=== PATIENT | male | born 1985 | race African-American/Black ===

== ENCOUNTER 2023-12-01 16:46 | Inpatient (IN) | payer OTHER ==
[2023-12-01 18:06] VITALS: BMI 31.8
[2023-12-01] MEDS ORDERED: POLYETHYLENE GLYCOL (HEALTHYLAX) 3350 17 GM PACKET PO PRN (18:49)
[2023-12-01] MEDS ORDERED: BENZONATATE 200 MG CAPSULE PO PRN (18:49)
[2023-12-01] MEDS ORDERED: BISMUTH SUBSALICYLATE 524 MG/30 ML PO PRN (18:49)
[2023-12-01] MEDS ORDERED: DICYCLOMINE HCL 10 MG CAPSULE PO PRN (18:49)
[2023-12-01] MEDS ORDERED: IBUPROFEN 600 MG TABLET (FP) PO PRN (18:49)
[2023-12-01] MEDS ORDERED: ACETAMINOPHEN 325 MG TABLET (FP) PO PRN (18:49)
[2023-12-01] MEDS ORDERED: guaiFENesin 600 MG TABLET.ER (FP) PO PRN (18:49)
[2023-12-01] MEDS ORDERED: MAG HYDROX/AL HYDROX/SIMETH 30 ML UNIT-DOSE CUP PO PRN (18:49)
[2023-12-01] MEDS ORDERED: IBUPROFEN 400 MG TABLET (FP) PO PRN (18:49)
[2023-12-01] MEDS ORDERED: NICOTINE POLACRILEX 2 MG LOZENGE BC PRN (18:49)
[2023-12-01] MEDS ORDERED: NICOTINE POLACRILEX 2 MG GUM BUC PRN (18:49)
[2023-12-01] MEDS ORDERED: P-EPHED 60MG/TRIPROLIDI 2.5MG TABLET PO PRN (18:49)
[2023-12-01] MEDS ORDERED: BENZOCAINE/MENTHOL (CHLORASEPTIC ) LOZENGE MM PRN (18:49)
[2023-12-01] MEDS ORDERED: ONDANSETRON *ODT* 4 MG TABLET SL PRN (18:49)
[2023-12-01] MEDS: amLODIPine BESYLATE 2.5 MG TABLET (FP) PO SCH (20:41)
[2023-12-01] MEDS: hydrOXYzine PAMOATE 25 MG CAPSULE (FP) PO PRN (20:41)
[2023-12-01] MEDS: THIAMINE 100 MG TABLET PO SCH (21:49)
[2023-12-01] MEDS: MELATONIN 5 MG TABLETS PO SCH (21:49)
[2023-12-01] MEDS: METHOCARBAMOL 500 MG TABLET PO PRN (21:49)
[2023-12-01] MEDS: cloNIDine HCL 0.1 MG TABLET PO ONE (23:43)
[2023-12-02 09:51] LABS: POTASSIUM 4.4 mmol/L (3.5-5.1)
[2023-12-02 09:52] LABS: HEMATOCRIT 38.5 % (35.4-49); HEMOGLOBIN 13.3 GM/dL (11.7-16.9); MCH 30.8 pg (25.7-33.7); MCHC 34.6 g/dl (32.0-35.9); MEAN CELL VOLUME 89.2 fl (80-96); MEAN PLT VOLUME 7.5 fl (7.5-11.1); PLATELET COUNT 292 10^3/uL (134-434); RBC 4.31 M/mm3 (4.00-5.60); RDW 14.3 % (11.9-15.9); WHITE BLOOD COUNT 5.2 K/mm3 (4.0-10.0)
[2023-12-02 10:01] LABS: ALBUMIN 3.4 g/dl (3.4-5.0); BLOOD UREA NITROGEN 10.6 mg/dL (7-18)
[2023-12-02] MEDS ORDERED: chlordiazePOXIDE HCL 25 MG CAPSULE PO PRN (10:03)
[2023-12-02 10:04] LABS: CREATININE 0.8 mg/dL (0.55-1.3)
[2023-12-02] MEDS: NICOTINE 14 MG/24 HOURS TOPICAL PATCH TD SCH (10:07)
[2023-12-02] MEDS: PRENATAL VITAMINS W/ FOLIC ACID TABLET (FP) PO SCH (10:07)
[2023-12-02 10:08] LABS: TOT PROT 6.4 g/dl (6.4-8.2)
[2023-12-02 10:18] LABS: BILIRUBIN,TOTAL 1.1 mg/dL (0.2-1)
[2023-12-02] MEDS: chlordiazePOXIDE HCL 25 MG CAPSULE PO SCH (10:50)
[2023-12-02] MEDS: cloNIDine HCL 0.1 MG TABLET PO ONE (13:53)
[2023-12-03] MEDS: amLODIPine BESYLATE 5 MG TABLET (FP) PO SCH (10:22)
[2023-12-04] MEDS: chlordiazePOXIDE HCL 25 MG CAPSULE PO SCH (05:15)
[2023-12-04] MEDS: LOPERAMIDE HCL 2 MG CAPSULE PO PRN (10:02)
[2023-12-04] MEDS: cloNIDine HCL 0.1 MG TABLET PO ONE (13:45)
[2023-12-05] MEDS ORDERED: chlordiazePOXIDE HCL 10 MG CAPSULE PO PRN
[2023-12-05] MEDS: chlordiazePOXIDE HCL 10 MG CAPSULE PO SCH (05:21)
[2023-12-06] MEDS: chlordiazePOXIDE HCL 10 MG CAPSULE PO SCH (05:17)
[2023-12-06] MEDS: MAGNESIUM HYDROX 2400MG/30ML ORAL SUSPENSION 30 ML CUP PO PRN (19:10)
[2023-12-06] MEDS: cloNIDine HCL 0.1 MG TABLET PO ONE (23:34)
[2023-12-07] MEDS: chlordiazePOXIDE HCL 10 MG CAPSULE PO ONE (05:32)
[2023-12-07 08:47] VITALS: BP 138/94; PULSE 74; RESP 16; TEMP 97.7
== END 2023-12-07 09:55 | disposition home or self-care (01) | DRG 897 ==
LOC: YASAS 16:46 → Y6N 19:23
PROVIDERS: ADMIT Allergy & Immunology; ATTEND Surgery
PROC: HZ2ZZZZ Detoxification Services for Substance Abuse Treatment (ICD-10-PCS; principal; 2023-12-01)
DX: F10.230 Alcohol dependence with withdrawal, uncomplicated (principal); F10.282 Alcohol dependence with alcohol-induced sleep disorder; F10.280 Alcohol dependence with alcohol-induced anxiety disorder; F12.20 Cannabis dependence, uncomplicated; F17.213 Nicotine dependence, cigarettes, with withdrawal; U07.0 Vaping-related disorder; F25.9 Schizoaffective disorder, unspecified; I10 Essential (primary) hypertension; M54.59 Other low back pain; G89.29 Other chronic pain; Z62.810 Personal history of physical and sexual abuse in childhood; Z86.11 Personal history of tuberculosis; Z56.0 Unemployment, unspecified
CPT/HCPCS: 36415; 80053; 80305; 83036; 85027; 86593; 86780; 93005; 93010